=== PATIENT | male | born 1945 | race Caucasian/White ===

== ENCOUNTER 2017-05-30 06:19 | Day surgery (SDC) | payer MEDICARE, BC ==
[2017-05-30] MEDS ORDERED: Lactated Ringers 1,000 ML IV SCH (07:00)
[2017-05-30] MEDS ORDERED: fentaNYL 100 MCG/2 ML SDV ONE (07:37)
[2017-05-30] MEDS ORDERED: Propofol 200 MG/20 ML SDV ONE (07:37)
[2017-05-30] MEDS ORDERED: Midazolam 1 MG/ML 2 ML SDV ONE (07:37)
[2017-05-30 09:19] VITALS: BP 106/74
--- NOTE | 2017-05-31 11:19 | OR ---
DATE OF PROCEDURE: 05/30/2017 PREOPERATIVE DIAGNOSIS: Upper abdominal pain. POSTOPERATIVE DIAGNOSES: Upper abdominal pain, gastroesophageal reflux disease , and gastritis. PROCEDURE: Esophagogastroduodenoscopy with antral biopsies for CLOtest and sent for pathology to look for Helicobacter pylori, biopsy of gastroesophageal junction. ANESTHESIA: IV anesthesia with monitored anesthesia care. SURGEON: Tom Bee MD INDICATIONS: This 71-year-old white male is referred for upper endoscopy because of upper abdominal pain. This is his first upper endoscopy. I counseled him for the procedure including risks and alternatives, and he gave his informed consent to proceed. DESCRIPTION OF PROCEDURE: The patient was placed in the left lateral decubitus position. IV anesthesia was administered by the Anesthesia Service. Time-out was held. The flexible video Olympus upper endoscope was passed through his mouth, down the esophagus, and into his stomach. The scope was easily passed through the pylorus into the duodenum reaching its third portion. The scope was then slowly withdrawn examining the mucosa throughout. The duodenal mucosa appeared unremarkable. The scope was brought up through the pylorus into the antrum. There was mild erythematous streaking emanating from the pylorus consistent with gastritis. The scope was retroflexed. There was evidence of irritation in the proximal stomach also consistent with gastritis. We obtained antral biopsies for CLOtest and sent for pathology to look for Helicobacter pylori. The scope was brought up to the GE junction. This was abnormal as the Z-line was not straight. We obtained multiple totalling six biopsies of the gastroesophageal junction. The scope was then brought proximally up through the remainder of the esophagus, which otherwise appeared unremarkable and was removed. He tolerated the procedure well. Tom Bee MD /[id number]
== END 2017-05-30 09:20 | disposition home or self-care (01) ==
LOC: JP.SDS 06:19
PROVIDERS: ATTEND Surgery
DX: K22.70 Barrett's esophagus without dysplasia (principal); K21.9 Gastro-esophageal reflux disease without esophagitis; K29.70 Gastritis, unspecified, without bleeding; R07.89 Other chest pain; I10 Essential (primary) hypertension; E78.5 Hyperlipidemia, unspecified; G47.33 Obstructive sleep apnea (adult) (pediatric); I25.10 Atherosclerotic heart disease of native coronary artery without angina pectoris; N40.1 Benign prostatic hyperplasia with lower urinary tract symptoms; Z95.5 Presence of coronary angioplasty implant and graft; Z87.19 Personal history of other diseases of the digestive system; Z79.899 Other long term (current) drug therapy; Z79.82 Long term (current) use of aspirin
CPT/HCPCS: 43239; 87081; 88305; J2250; J2704; J3010; J7120

== ENCOUNTER 2018-04-15 08:04 | Day surgery (SDC) | payer MEDICARE, BC ==
[2018-04-15] MEDS ORDERED: Midazolam 1 MG/ML 2 ML SDV ONE (08:22)
[2018-04-15] MEDS ORDERED: Propofol 200 MG/20 ML SDV ONE (08:22)
[2018-04-15] MEDS ORDERED: fentaNYL 100 MCG/2 ML SDV ONE (08:22)
[2018-04-15] MEDS ORDERED: Dextrose 5%-Lactated Ringers 1,000 ML IV SCH (08:45)
[2018-04-15] MEDS ORDERED: Glycopyrrolate 0.2 MG/ML 2 ML SDV IVPUSH ONE (09:30)
[2018-04-15 11:41] VITALS: BP 123/68
--- NOTE | 2018-04-23 10:44 | OR ---
DATE OF PROCEDURE: 04/15/2018 PREOPERATIVE DIAGNOSIS: History of Flor's esophagus. POSTOPERATIVE DIAGNOSES: 1. Active gastroesophageal reflux disease with history of Flor's esophagus. 2. Minimal antral gastritis. OPERATIVE PROCEDURE: Esophagogastroduodenoscopy with: 1. Biopsies of esophagogastric junction for histologic evaluation. 2. Biopsies of antrum for CLOtest. ANESTHESIA: IV sedation. INDICATION FOR PROCEDURE: This is a 72-year-old presenting with a history of Flor's esophagus and a plan to proceed with a followup upper endoscopy. He does have some ongoing symptoms of chest pain and epigastric discomfort. Presently, he is on omeprazole 40 mg a day. Plan is to proceed with an upper GI endoscopy with biopsies as indicated. Potential risks including bleeding and perforation were discussed, and the patient wishes to proceed. DETAILS OF THE PROCEDURE: The patient was taken to the operating room and placed in a left lateral decubitus position. IV sedation was administered, after which the upper GI endoscope was passed orally through the length of the esophagus and into the stomach with retroflexion view of the fundus, thereafter through the pyloric channel into the proximal duodenum. Findings included normal hypopharynx, larynx, upper esophageal sphincter, and esophageal body. At the EG junction, there was a marked inflammation with several areas of ulceration which was still present of blood. This was associated with some upward extension of the gastroesophageal junction mucosal lining consistent with known gastroesophageal reflux disease. No stricturing or plaquing was seen. The scope was then advanced into the stomach with the antrum showing some very minimal patchy redness of the pyloric channel and the duodenum to the junction of the third and fourth portions were unremarkable. At this point, biopsies were obtained from the antrum and sent for CLOtest for H. pylori. Multiple biopsies were obtained from esophagogastric junction, sent for histologic evaluation. Minimal bleeding from the biopsy site was seen and the procedure then concluded. Plan will be to see the patient this coming Sunday to discuss treatment options. He appeared to be a good candidate for antireflux procedure given the degree of symptoms and the lack of efficacy of . Bg Luong MD /[id number]
== END 2018-04-15 11:30 | disposition home or self-care (01) ==
LOC: JP.SDS 08:04
PROVIDERS: ATTEND Surgery
DX: K22.70 Barrett's esophagus without dysplasia (principal); K21.9 Gastro-esophageal reflux disease without esophagitis; K29.70 Gastritis, unspecified, without bleeding; I10 Essential (primary) hypertension; E78.5 Hyperlipidemia, unspecified; I25.10 Atherosclerotic heart disease of native coronary artery without angina pectoris; G47.33 Obstructive sleep apnea (adult) (pediatric); Z79.899 Other long term (current) drug therapy; Z88.8 Allergy status to other drugs, medicaments and biological substances
CPT/HCPCS: 43239; 87081; 88305; J2250; J2704; J3010; J7042; J3490

== ENCOUNTER 2018-06-06 07:24 | Inpatient (IN) | payer MEDICARE, BC ==
[2018-06-06] MEDS ORDERED: Acetaminophen 500 MG Tab PO ONE (07:30)
[2018-06-06] MEDS ORDERED: Dextrose 5%-Lactated Ringers 1,000 ML IV SCH (07:45)
[2018-06-06] MEDS ORDERED: cefOXitin 2 GM in Sodium Chloride 0.9% 50 ML IV ONE (08:30)
[2018-06-06] MEDS ORDERED: Naloxone 0.4 MG/ML SDV IVPUSH PRN (08:53)
[2018-06-06] MEDS ORDERED: Naloxone 0.4 MG/ML SDV IV PRN (08:56)
[2018-06-06] MEDS ORDERED: fentaNYL 250 MCG/5 ML SDV ONE ×2 (08:57→10:22)
[2018-06-06] MEDS ORDERED: Glycopyrrolate 0.2 MG/ML 5 ML MDV ONE (08:58)
[2018-06-06] MEDS ORDERED: Dexamethasone 4 MG/ML SDV ONE (08:58)
[2018-06-06] MEDS ORDERED: Propofol 200 MG/20 ML SDV ONE (08:58)
[2018-06-06] MEDS ORDERED: Ondansetron 4 MG/2 ML SDV ONE (08:58)
[2018-06-06] MEDS ORDERED: Neostigmine Methylsulfate 1 MG/ML 5 ML Syringe ONE (08:58)
[2018-06-06] MEDS ORDERED: Succinylcholine 200 MG/10 ML MDV ONE (08:58)
[2018-06-06] MEDS ORDERED: Rocuronium 50 MG/5 ML Vial ONE ×2 (08:58→10:22)
[2018-06-06] MEDS ORDERED: Ketamine 500 MG/5 ML MDV IV SCH (09:00)
[2018-06-06] MEDS ORDERED: Ropivacaine 48 ML, Dexamethasone 8 MG, EPINEPHrine 0.4 MG, Sodium Chloride 0.9% 29.6 ML NERVRT SCH ×4 (09:00)
[2018-06-06] MEDS: HYDROmorphone/Normal Saline 15 MG/30 ML PCA IV PRN (09:03)
[2018-06-06] MEDS ORDERED: Meropenem 500 MG SDV ONE (10:28)
[2018-06-06] MEDS ORDERED: Lactated Ringers 1,000 ML ONE (11:34)
[2018-06-06] MEDS ORDERED: hydrOXYzine HCl 100 MG/2 ML SDV IM ONE (12:23)
[2018-06-06] MEDS: Dextrose 5%-Lactated Ringers 1,000 ML IV SCH ×2 (13:27→20:37)
[2018-06-06] MEDS ORDERED: Ondansetron 4 MG/2 ML SDV IVPUSH PRN (14:00)
[2018-06-06] MEDS ORDERED: hydrOXYzine HCl 100 MG/2 ML SDV IM PRN (14:00)
[2018-06-06] MEDS ORDERED: Cyclobenzaprine 10 MG Tab PO PRN (14:01)
[2018-06-06] MEDS: Tamsulosin 0.4 MG Cap.ER PO SCH ×2 (14:12→20:39)
[2018-06-06] MEDS: Pantoprazole 40 MG Vial IVPUSH SCH (15:50)
[2018-06-06] MEDS: Metoclopramide 10 MG/2 ML SDV IVPUSH SCH ×2 (15:51→22:35)
[2018-06-06] MEDS: cefOXitin 2 GM in Sodium Chloride 0.9% 50 ML IV SCH ×2 (16:06→22:37)
[2018-06-06] MEDS: Metoprolol Tartrate 50 MG Tab PO SCH (20:40)
[2018-06-07] MEDS: Dextrose 5%-Lactated Ringers 1,000 ML IV SCH ×4 (02:52→22:17)
[2018-06-07] MEDS: cefOXitin 2 GM in Sodium Chloride 0.9% 50 ML IV SCH ×4 (03:01→22:17)
[2018-06-07] MEDS: Metoclopramide 10 MG/2 ML SDV IVPUSH SCH ×2 (03:04→10:00)
--- NOTE | 2018-06-07 09:04 | PN ---
DATE OF SERVICE: 06/07/2018 SUBJECTIVE: Myles is postop day #1. His pain has been controlled. He has been on ice chips. Oral intake 240. Urine output 625. HALEIGH drain put out 155. He was started on Flomax. 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 He has been up ambulating. States his pain is controlled, using his incentive spirometer. REVIEW OF SYSTEMS: Remainder of review of systems negative for any pertinent positives and negatives. OBJECTIVE: GENERAL: Myles Flowers is a 72-year-old male, alert, orientated, sitting up in the chair. VITAL SIGNS: TPR 97.9, 74, 18. Blood pressure 156/81. HEENT: Negative. NECK: Supple. HEART: Regular rate and rhythm. LUNGS: Clear. ABDOMEN: Dressings dry and intact. Abdominal binder is on. HALEIGH drain intact, draining as above. EXTREMITIES: Without peripheral edema. 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 Date of surgery, 06/06/2018. Surgeon, Bg Luong M.D. PLAN: 1. Verify the patient's consent and schedule delayed primary closure, IV sedation and TAP block for 06/08/2018; Bg Luong M.D. N.p.o. after midnight. 2. Full liquid diet. 3. Decrease IV rate to 100 mL per hour. 4. Good pulmonary toilet. 5. We will evaluate p.r.n. or in the a.m. Gabby Boyle PA-C /[id number]
[2018-06-07] MEDS: atorvaSTATin 20 MG Tab PO SCH (10:00)
[2018-06-07] MEDS: amLODIPine 10 MG Tab PO SCH (10:00)
[2018-06-07] MEDS: Metoprolol Tartrate 50 MG Tab PO SCH ×2 (10:00→22:21)
[2018-06-07] MEDS ORDERED: Metoclopramide 10 MG/2 ML SDV IVPUSH PRN (16:00)
[2018-06-07] MEDS: Pantoprazole 40 MG Vial IVPUSH SCH (16:19)
[2018-06-07] MEDS: HYDROmorphone/Normal Saline 15 MG/30 ML PCA IV PRN (19:50)
[2018-06-07] MEDS: Tamsulosin 0.4 MG Cap.ER PO SCH (22:21)
[2018-06-08] MEDS ORDERED: Lidocaine 1% with EPINEPHrine 1:100,000 50 ML MDV ONE (06:12)
[2018-06-08] MEDS ORDERED: Bupivacaine 0.5% 50 ML MDV ONE (06:12)
[2018-06-08] MEDS ORDERED: Meropenem 500 MG SDV ONE (06:12)
[2018-06-08] MEDS ORDERED: fentaNYL 100 MCG/2 ML SDV ONE (06:54)
[2018-06-08] MEDS ORDERED: Propofol 200 MG/20 ML SDV ONE (06:54)
[2018-06-08] MEDS ORDERED: Ropivacaine 48 ML, Dexamethasone 8 MG, EPINEPHrine 0.4 MG, Sodium Chloride 0.9% 29.6 ML NERVRT SCH ×4 (07:15)
[2018-06-08] MEDS ORDERED: Non-Formulary Medication 1 Each SCH (07:15)
[2018-06-08] MEDS ORDERED: Lactated Ringers 1,000 ML ONE (07:39)
[2018-06-08] MEDS: Metoprolol Tartrate 50 MG Tab PO SCH ×2 (09:15→20:21)
[2018-06-08] MEDS: amLODIPine 10 MG Tab PO SCH (09:15)
[2018-06-08] MEDS: Bisacodyl 5 MG Tab PO SCH ×2 (09:15→20:20)
[2018-06-08] MEDS: Docusate Sodium 100 MG Cap PO SCH ×2 (09:16→20:21)
[2018-06-08] MEDS: atorvaSTATin 20 MG Tab PO SCH (09:16)
--- NOTE | 2018-06-08 09:54 | PN ---
DATE OF SERVICE: 06/08/2018 The patient has been afebrile with stable vital signs. Oral intake is fairly good. We will proceed with delayed primary closure of abdominal incision today and then restart his diet. I think we will leave him on CLAIM INSPECTOR for today and most likely switch over to oral pain medication tomorrow. Bg Luong MD /[id number]
[2018-06-08] MEDS: Dextrose 5%-Lactated Ringers 1,000 ML IV SCH ×2 (14:05→22:25)
[2018-06-08] MEDS: Pantoprazole 40 MG Vial IVPUSH SCH (16:36)
[2018-06-08] MEDS: Tamsulosin 0.4 MG Cap.ER PO SCH (20:20)
[2018-06-09] MEDS ORDERED: Acetaminophen/oxyCODONE 325-5 MG Tab PO PRN (07:35)
[2018-06-09] MEDS ORDERED: Dextrose 5%-Lactated Ringers 1,000 ML IV SCH (07:45)
[2018-06-09] MEDS: Docusate Sodium 100 MG Cap PO SCH ×2 (08:06→20:17)
[2018-06-09] MEDS: Metoprolol Tartrate 50 MG Tab PO SCH ×2 (08:06→20:16)
[2018-06-09] MEDS: atorvaSTATin 20 MG Tab PO SCH (08:07)
[2018-06-09] MEDS: amLODIPine 10 MG Tab PO SCH (08:07)
[2018-06-09] MEDS ORDERED: Pantoprazole 40 MG Tab.CR PO SCH (16:00)
[2018-06-09] MEDS: Tamsulosin 0.4 MG Cap.ER PO SCH (20:16)
--- NOTE | 2018-06-10 08:42 | OR ---
DATE OF PROCEDURE: 06/06/2018 PREOPERATIVE DIAGNOSIS: Gastroesophageal reflux disease refractory to medical management with coexisting Flor's esophagus. POSTOPERATIVE DIAGNOSES: 1. Gastroesophageal reflux disease refractory to medical management with coexisting Flor's esophagus. 2. Extensive intra-abdominal adhesions including areas of small bowel to the abdominal wall with 2 focal areas of deserosalization secondary to adherence of the abdominal wall. OPERATIVE PROCEDURES: Diagnostic laparoscopy converted to laparotomy with lysis of extensive adhesions, and: 1. Repair of paraesophageal diaphragmatic hernia with mesh and concurrent Lizbeth fundoplication (40115). 2. Closure of small bowel deserosalization x2 (60521). ANESTHESIA: General. MACHINE I COREMAKER: Gabby Boyle PA-C. INDICATIONS FOR PROCEDURE: The patient presents with gastroesophageal reflux disease that has become quite refractory to medical management. After preoperative evaluation and discussion, he wished to proceed with a Lizbeth fundoplication. He has a long midline incision extending into the upper abdomen, and he is aware there is a significant likelihood that he may need to have an open approach due to adhesions. Otherwise, potential risks of the fundoplication including bleeding, infection, injury to underlying viscera, problems with fundoplication such as dysphagia, gas-bloat syndrome, disorders of gastric emptying rate, as well as the possibility of cardiopulmonary, septic, or hemorrhagic complications leading to were all discussed, and the patient wishes to proceed. DETAILS OF PROCEDURE: The patient was taken to the operating room and placed in a supine position. After general endotracheal anesthesia was induced, he was converted to a lithotomy position and a Beasley catheter was attempted to be placed. Due to urethral stricturing secondary to his TUR procedures, even an 8-[place] Beasley catheter was not able to be placed, and we elected not to pursue that further at that point. Should the patient postoperatively develop any urinary retention, then either he would need placement of a suprapubic tube or get a catheter in place by means of a filiform and follower technique. The abdomen was then prepped and draped. Initially, in the left lateral abdomen, a transverse incision was made. At this point, the peritoneal cavity was entered and a small open area was seen. This was quite limited in terms of visualization. The peritoneal cavity was inflated to 15 mmHg with CO2 and no injuries were seen. Given this, then two attempts, one in the right lower mid-abdomen and one in the right upper mid-abdomen were made to enter the peritoneal cavity. In each case, the Optiview trocar came into what appeared to be densely adhered omentum. At that point, the decision was made to convert into an open approach. Trocars were removed. An upper midline incision was made and carried down through the skin and subcutaneous tissue, and fascia and peritoneum. On lower end of the incision, there were some 2 areas of small bowel that were densely adherent to the abdominal wall along the incision. The 2 areas appeared to be deserosalized after dissection away from those areas. No full enterotomies were noted. Both sites were then closed with transverse firings of the ANISH siddiqui load. Attention was then taken to the upper abdomen. Some adhesions were taken down there as well. At that point, the patient had an James tube placed for anesthesia to identify the esophagogastric junction and distal esophagus. After the liver was retracted, the esophagogastric junction was initially encircled and then freed up from the various attachments, and subsequently, at that point, we had roughly 4 to 5 cm length intraabdominal esophagus. The posterior crural repair was then accomplished with some 0 Ethibond sutures reinforced with PTFE pledgets, and a portion of the Phasix mesh was then placed over the crural repair and fixed with some absorbable tacking screws. At this point, beginning on the upper greater curvature, the omentum was divided away from the stomach. This dissection then continued proximally dividing the short gastric, including the highest and posterior short gastrics. This allowed adequate floppiness of the fundus. This was retrieved through the retroesophageal window. The James tube was then replaced with a 54-[place] Savary dilator placed over a guidewire per Anesthesia. A 2-cm three-stitch fundoplication was accomplished with 0 Ethibond sutures reinforced with PTFE pledgets. Each of the sutures included bites of the underlying esophagus to help fix it in position. A suture on each side of the fundoplication overlying the diaphragm was then stitched, pledget combination was then also placed to try to prevent slippage of the fundoplication. At that point, no further problems were noted. The abdomen was irrigated with antibiotic-containing saline solution. A Evan-Simms drain was taken out through the original trocar site in the left subcostal area. Bilateral subcostal transversus abdominis plane blocks had been placed internally prior to closure. The midline fascia was then approximated with a #2 Vicryl stitch. The skin and subcutaneous tissue were felt to be at risk for wound infection if a primary closure was undertaken. Given this, the wound was packed open, including the trocar sites for a planned delayed primary closure in 48 hours. The patient was taken to the recovery room in a satisfactory condition. Physician assignment desk assistant, Gabby Boyle, played an essential role in assisting in this case, helping to position the patient, retract structures as needed, as well as suturing and cutting sutures when indicated. Her presence improved patient safety and decreased the operative time. Bg Luong MD /[id number]
[2018-06-10 08:46] VITALS: BP 156/80
[2018-06-10] MEDS: Metoprolol Tartrate 50 MG Tab PO SCH (09:11)
[2018-06-10] MEDS: atorvaSTATin 20 MG Tab PO SCH (09:11)
[2018-06-10] MEDS: amLODIPine 10 MG Tab PO SCH (09:12)
[2018-06-10] MEDS: Docusate Sodium 100 MG Cap PO SCH (09:13)
--- NOTE | 2018-06-10 09:19 | DISCH ---
ADMISSION DIAGNOSES: 1. Gastroesophageal reflux disease refractory to medical management. 2. Dyslipidemia. 3. Hypertension. 4. Obstructive sleep apnea. 5. Benign nonnodular prostatic hyperplasia. 6. History of coronary artery bypass graft x2. DISCHARGE DIAGNOSES: 1. 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 Date of surgery, 06/06/2018. Surgeon, Bg Luong MD. 2. Delayed primary closure of open abdominal incision on 06/08/2018. Surgeon, Bg Luong MD. HISTORY: Myles Flowers is a 72-year-old male with a longstanding history of GERD refractory to medical management. After preoperative evaluation and discussion of possible risks and possible complications, he wished to proceed with surgical procedure. HOSPITAL COURSE: Myles had his surgery on 06/06/2018. He had no operative complications. On postoperative day #1, he was started on a full liquid diet. IV was decreased. On 06/08/2018, he had a delayed primary closure without any complications. On 06/09/2018, he was changed to oral pain medication, and his oral intake was good, and his activity was good. On 06/10/2018, he was able to be discharged to home without any complications. PHYSICAL EXAMINATION: GENERAL: Myles Flowers is a 72-year-old male. VITAL SIGNS: Height is 5 feet 6.9 inches. Weight is 211 pounds. TPR is 97.3, 70, 16, and blood pressure 132/74. HEENT: Negative. NECK: Supple. HEART: Regular rate and rhythm. LUNGS: Clear. ABDOMEN: Troy in place. Peripheral HALEIGH drain was removed and 4x4 placed over that. Midline HALEIGH drain remains intact. Abdominal binder is on. EXTREMITIES: Without peripheral edema. DISPOSITION: Discharged to home. CONDITION: Stable and improving. FOLLOWUP: Followup appointment with Bg Luong MD, on 06/19/2018, at 9 a.m. He will have a dietitian appointment at that time also. DISCHARGE MEDICATIONS: Home medications, Tylenol Extra Strength 1000 mg q.6 hours p.r.n. pain, #100. He is to resume his home medications of; 1. FiberCon 625 mg oral daily. 2. Glucosamine chondroitin one tablet daily. He can either hold the medication split or crush until he is able to swallow the large pill. 3. Metoprolol tartrate 50 mg oral twice daily. 4. Norvasc 10 mg oral daily. 5. Atorvastatin 40 mg oral daily. Discontinue taking the omeprazole. DISCHARGE DIET: Full liquid diet for 2 weeks. Drink 8 to 10 glasses of water a day. ACTIVITY: No lifting greater than 10 pounds for 6 weeks. Other activity, walk at least 6 times daily inside your home. Driving, do not drive for one week. May shower. Keep site clean and dry. Wear abdominal binder for 6 weeks. Strip, empty, measure, and record HALEIGH drain 4 times a day and when half full. Bring record of drainage to clinic appointment. DISCHARGE INSTRUCTIONS: Special instruction, use incentive spirometer 10 times every hour while awake.
--- NOTE | 2018-06-17 13:50 | OR ---
DATE OF PROCEDURE: 06/08/2018 PREOPERATIVE DIAGNOSIS: Open abdominal incision. POSTOPERATIVE DIAGNOSES: 1. Open abdominal incision. 2. Abdominal wall lipoma. OPERATIVE PROCEDURE: 1. Delayed primary closure of open abdominal incision. 2. Excision of abdominal wall subcutaneous lipoma (73235). ANESTHESIA: Local plus IV sedation. INDICATION FOR PROCEDURE: The patient is status post an open laparotomy which was abdominal wall which put it at high risk for wound infection if primary closure was undertaken. Given this, the wound was packed open, a planned delayed primary closure was scheduled at this time. Potential risks including bleeding and infection were reviewed, and the patient wishes to proceed. DETAILS OF PROCEDURE: The patient was taken to the operating room, placed in a supine position. After IV sedation was administered, the patient had bilateral lateral abdominal wall transverse abdominis plane blocks placed. This was done with the usual ultrasound guidance. Following this, the dressing was taken down. The wound was inspected and found to be clean. It was then prepped and draped, anesthetized with 1% lidocaine mixed with Marcaine and irrigated with meropenem-containing saline solution. The patient was noted to have a roughly 1-2 cm subcutaneous lipoma on one of the edges of the lower aspect of the incision. This was excised and the incision then closed with 2 layers of 3-0 and 4-0 Vicryl stitch deep and then anand for the skin. Dressing was applied. The patient was taken to the recovery room in satisfactory condition. Bg Luong MD /[id number]
== END 2018-06-10 10:48 | disposition home or self-care (01) | DRG 327 ==
LOC: JP.MS 07:24 → JP.SDS 07:24 → EDSTATUS 07:30 → JP.MS 11:55
PROVIDERS: ADMIT Surgery; ATTEND Surgery
PROC: 0DV40ZZ Restriction of Esophagogastric Junction, Open Approach (ICD-10-PCS; principal; 2018-06-06)
PROC: 0BUT0JZ Supplement Diaphragm with Synthetic Substitute, Open Approach (ICD-10-PCS; 2018-06-06)
PROC: 0DJ04ZZ Inspection of Upper Intestinal Tract, Percutaneous Endoscopic Approach (ICD-10-PCS; 2018-06-06)
PROC: 0DNU0ZZ Release Omentum, Open Approach (ICD-10-PCS; 2018-06-06)
PROC: 0DNW0ZZ Release Peritoneum, Open Approach (ICD-10-PCS; 2018-06-06)
PROC: 0DQ80ZZ Repair Small Intestine, Open Approach (ICD-10-PCS; 2018-06-06)
PROC: 0T9B70Z Drainage of Bladder with Drainage Device, Via Natural or Artificial Opening (ICD-10-PCS; 2018-06-06)
PROC: 3E0T3BZ Introduction of Anesthetic Agent into Peripheral Nerves and Plexi, Percutaneous Approach (ICD-10-PCS; 2018-06-06)
PROC: 0JB80ZZ Excision of Abdomen Subcutaneous Tissue and Fascia, Open Approach (ICD-10-PCS; 2018-06-08)
PROC: 0WQF0ZZ Repair Abdominal Wall, Open Approach (ICD-10-PCS; 2018-06-08)
PROC: 0JB80ZZ Excision of Abdomen Subcutaneous Tissue and Fascia, Open Approach (ICD-10-PCS; 2018-06-08)
DX: K21.9 Gastro-esophageal reflux disease without esophagitis (principal); S36.499A Other injury of unspecified part of small intestine, initial encounter; K22.70 Barrett's esophagus without dysplasia; K44.9 Diaphragmatic hernia without obstruction or gangrene; K66.0 Peritoneal adhesions (postprocedural) (postinfection); Z53.31 Laparoscopic surgical procedure converted to open procedure; I10 Essential (primary) hypertension; E78.5 Hyperlipidemia, unspecified; I25.10 Atherosclerotic heart disease of native coronary artery without angina pectoris; Z95.1 Presence of aortocoronary bypass graft; Z88.8 Allergy status to other drugs, medicaments and biological substances; N99.114 Postprocedural urethral stricture, male, unspecified; D17.1 Benign lipomatous neoplasm of skin and subcutaneous tissue of trunk; G47.33 Obstructive sleep apnea (adult) (pediatric); N40.0 Benign prostatic hyperplasia without lower urinary tract symptoms
CPT/HCPCS: 36415; 80053; 83735; 84100; 85027; 88304; 88305; 88307; 94762; A9270-GY; C1781; C9113; J0171; J0330; J0694; J1100; J1170; J2185; J2405; J2704; J2710; J2765; J2795; J3010; J3410; J3490; J7042; J7050; J7120

== ENCOUNTER 2020-09-24 05:48 | Day surgery (SDC) | payer BC, MEDICARE ==
[2020-09-24] MEDS ORDERED: Dextrose 5%-Lactated Ringers 1,000 ML IV SCH (07:00)
[2020-09-24] MEDS ORDERED: Midazolam 1 MG/ML 2 ML SDV ONE (07:09)
[2020-09-24] MEDS ORDERED: Propofol 200 MG/20 ML SDV ONE (07:09)
[2020-09-24] MEDS ORDERED: fentaNYL 100 MCG/2 ML SDV ONE (07:09)
[2020-09-24] MEDS ORDERED: Pantoprazole 40 MG Vial IVPUSH ONE (08:02)
[2020-09-24 10:10] VITALS: BP 118/67; PULSE 56
--- NOTE | 2020-09-28 16:06 | OR ---
DATE OF PROCEDURE: 09/24/2020 SURGEON: Bg Luong MD PREOPERATIVE DIAGNOSES: 1. History of Flor esophagus. 2. History of colonic adenomas. POSTOPERATIVE DIAGNOSES: 1. History of Flor esophagus with intact Lizbeth fundoplication and minimal occurring inflammation at esophagogastric junction. 2. Moderate antral gastritis. 3. History of colon polyps with no recurrent polypoid disease on current examination. OPERATIVE PROCEDURES: 1. Esophagogastroduodenoscopy with: a. Biopsies of esophagogastric junction for histologic evaluation. b. Biopsies of antrum for CLOtest. 2. Flexible colonoscopy. SUMMARY: This is a 75-year-old male presenting with some ongoing chest discomfort. On questioning the patient, this appeared to be somewhat to the right of the midline, and he actually has some mild discomfort on palpation of the mid anterior chest wall to the right of the midline indicating some possible musculoskeletal discomfort as opposed to visceral or cardiac type discomfort. At any rate, the patient has history of previous Lizbeth fundoplication. He does take some Levsin for primarily some episodes of esophageal spasm, but is not presently on any antisecretory medication. He does have history of previous colon polyps. Plan is to proceed with upper and lower endoscopy with biopsies and polypectomy as indicated. Potential risks including bleeding and perforation were discussed, and the patient wishes to proceed. DETAILS OF PROCEDURE: The patient was then taken to the operating room, placed in a left lateral decubitus position. IV sedation was administered, after which the upper GI endoscope was passed orally through the length of the esophagus into the stomach with retroflexion view of the fundus, thereafter through the pyloric channel into the junction of the third and fourth portions of the duodenum. Findings included normal hypopharynx, larynx, upper esophageal sphincter, and esophageal body. At the EG junction, there was an intact Lizbeth fundoplication. There was some upward extension of the columnar-type mucosa consistent with history of Flor esophagus. No plaquing or stricturing or others suggestive of neoplastic change was evident. The was a small amount of inflammation present at the distal esophagus where it would be grossly very minimal. Within the stomach, there was some patchy reddened areas in the antrum, otherwise the pyloric sphincter and visualized portions of the duodenum were unremarkable. At this point, biopsies were obtained from the antrum and sent for CLOtest for H. pylori. Multiple biopsies were then obtained from esophagogastric junction, sent for histologic evaluation. Minimal bleeding from the biopsy sites was seen and the procedure then concluded with removal of the upper GI endoscope. Attention was then taken to the colonoscopy. Initial digital rectal exam was performed, it was unremarkable. Colonoscope was then passed into the rectum with retroflexion revealing uncomplicated hemorrhoidal columns. Scope was then eventually passed to the level of the cecum. The prep was quite good. There was only a small amount of liquid stool present. To that level, no abnormalities were noted. There were no diverticula, no areas of colitis, and no polyps or other signs of neoplasia. Scope was then withdrawn, the above findings reconfirmed, and the procedure then concluded. At this point, we will begin the patient on a course of Protonix. We will give him Protonix 40 mg IV in the recovery room followed by 40 mg orally to see if that is helpful with regard to his symptoms. He was instructed to follow up with Dr. Lopez to assess the trial of the proton pump inhibitors in roughly 1 month. Bg Luong MD /[id number]
== END 2020-09-24 09:20 | disposition home or self-care (01) ==
LOC: JP.SDS 05:48
PROVIDERS: ATTEND Surgery
DX: Z12.11 Encounter for screening for malignant neoplasm of colon (principal); K29.70 Gastritis, unspecified, without bleeding; K31.89 Other diseases of stomach and duodenum; K21.9 Gastro-esophageal reflux disease without esophagitis; I10 Essential (primary) hypertension; E78.5 Hyperlipidemia, unspecified; Z95.1 Presence of aortocoronary bypass graft; Z88.8 Allergy status to other drugs, medicaments and biological substances; Z87.19 Personal history of other diseases of the digestive system; Z85.038 Personal history of other malignant neoplasm of large intestine
CPT/HCPCS: 43239; 87081; C9113; G0105; J2250; J2704; J3010; J7121; 88305

== ENCOUNTER 2022-06-27 06:22 | Day surgery (SDC) | payer MEDICARE ==
[2022-06-27] MEDS ORDERED: Midazolam 1 MG/ML 2 ML SDV ONE (06:59)
[2022-06-27] MEDS ORDERED: Propofol 200 MG/20 ML SDV ONE (06:59)
[2022-06-27] MEDS ORDERED: fentaNYL 100 MCG/2 ML SDV ONE (06:59)
[2022-06-27] MEDS: Lactated Ringers 1,000 ML IV SCH (07:06)
[2022-06-27 10:04] VITALS: BP 141/80; PULSE 52
== END 2022-06-27 10:30 | disposition home or self-care (01) ==
LOC: JP.SDS 06:22
PROVIDERS: ATTEND Family Medicine
DX: K29.50 Unspecified chronic gastritis without bleeding (principal); K21.9 Gastro-esophageal reflux disease without esophagitis; I10 Essential (primary) hypertension; E78.00 Pure hypercholesterolemia, unspecified; I25.10 Atherosclerotic heart disease of native coronary artery without angina pectoris; G47.33 Obstructive sleep apnea (adult) (pediatric); Z88.8 Allergy status to other drugs, medicaments and biological substances; Z79.810 Long term (current) use of selective estrogen receptor modulators (SERMs); Z79.83 Long term (current) use of bisphosphonates; Z79.899 Other long term (current) drug therapy; Z95.1 Presence of aortocoronary bypass graft
CPT/HCPCS: 43239; 88305; J2704; J3010; J7120; J2250

== ENCOUNTER 2023-06-15 07:27 | Day surgery (SDC) | payer MEDICARE ==
[2023-06-15] MEDS ORDERED: Dextrose 5%-Lactated Ringers 1,000 ML IV SCH (08:00)
[2023-06-15] MEDS ORDERED: fentaNYL 50 MCG/ML SDV ONE (08:43)
[2023-06-15] MEDS ORDERED: Midazolam 1 MG/ML 2 ML SDV ONE (08:43)
[2023-06-15] MEDS ORDERED: Propofol 200 MG/20 ML SDV ONE ×3 (08:43→10:50)
[2023-06-15 11:18] VITALS: BP 138/70; PULSE 55
== END 2023-06-15 11:30 | disposition home or self-care (01) ==
LOC: JP.SDS 07:27
PROVIDERS: ATTEND Surgery
DX: Z12.11 Encounter for screening for malignant neoplasm of colon (principal); K22.70 Barrett's esophagus without dysplasia; K63.5 Polyp of colon; K21.00 Gastro-esophageal reflux disease with esophagitis, without bleeding; K64.9 Unspecified hemorrhoids; I25.10 Atherosclerotic heart disease of native coronary artery without angina pectoris; I10 Essential (primary) hypertension; Z98.890 Other specified postprocedural states; Z95.1 Presence of aortocoronary bypass graft; Z88.8 Allergy status to other drugs, medicaments and biological substances
CPT/HCPCS: 43239; 45385; 88305; J2250; J2704; J3010; J7121

== ENCOUNTER 2025-06-03 15:22 | Emergency (ER) | payer MEDICARE ==
[2025-06-03] MEDS: Ondansetron 4 MG/2 ML SDV IVPUSH ONE (18:33)
[2025-06-03 18:35] LABS: BASOPHILS PERCENT AUTO 0.2 % (0.1-1.3); EOSINOPHILS PERCENT AUTO 0.1 % (0.0-5.4); IMMATURE GRAN ABSOLUTE AUTO 0.04 K/uL (0.00-0.23); IMMATURE GRAN PERCENT AUTO 0.4 % (0.0-0.7); LYMPHOCYTES ABSOLUTE AUTO 1.97 K/uL (0.8-3.3); LYMPHOCYTES PERCENT AUTO 18.0 % (11.4-47.7); MONOCYTES ABSOLUTE AUTO 0.80 K/uL (0.20-0.90); MONOCYTES PERCENT AUTO 7.3 % (3.3-12.6); NEUTROPHILS ABSOLUTE AUTO 8.12 K/uL (1.0-7.6); NEUTROPHILS PERCENT AUTO 74.0 % (40.0-78.1); PLATELET COUNT,PLT 239 K/uL (130-375); RED BLOOD CELL COUNT 4.95 M/uL (4.14-5.76); WHITE BLOOD CELL COUNT,WBC 11.0 K/uL (3.2-11.0)
[2025-06-03 18:36] LABS: BASOPHILS ABSOLUTE AUTO 0.02 K/uL (0.00-0.10); EOSINOPHILS ABSOLUTE AUTO 0.01 K/uL (0.00-0.40)
[2025-06-03 18:59] LABS: A/G RATIO 1.1 (1.2-2.2); ALANINE AMINOTRANSFERASE,ALT 27 U/L (12-78); ASPARTATE AMNIOTRANSFERASE,AST 18 U/L (15-37); BILIRUBIN TOTAL 0.9 mg/dL (0.2-1.0); BLOOD UREA NITROGEN,BUN 14 mg/dL (7-18); CARBON DIOXIDE,CO2 32 mmol/L (21-32); CHLORIDE,CL 99 mmol/L (100-108); CREATININE 0.9 mg/dL (0.8-1.3); EST CRCL DRUG DOSING (CG) 64.26 mL/min; ESTIMATED GFR 88 mL/min (>60); GLUCOSE RANDOM 89 mg/dL (74-106); POTASSIUM,K 3.2 mmol/L (3.6-5.2); PROTEIN TOTAL,TP 7.3 g/dL (6.4-8.2); SODIUM,NA 137 mmol/L (140-148); TROPONIN I HIGH SENSITIVITY 10.7 pg/mL (<=60.3)
[2025-06-03 19:24] VITALS: BP 140/70; PULSE 79
[2025-06-03 19:32] LABS: APPEARANCE,URINE SLIGHTLY CLOUDY (CLEAR); GLUCOSE,URINE NEGATIVE (NEGATIVE); OCCULT BLOOD,URINE NEGATIVE (NEGATIVE)
[2025-06-03 19:39] LABS: EPITHELIAL CELLS,URINE RARE
[2025-06-03] MEDS: Potassium Chloride 20 MEQ Tab.ER PO ONE (19:57)
== END 2025-06-03 20:05 | disposition home or self-care (01) ==
LOC: JP.ED 15:22
DX: R11.2 Nausea with vomiting, unspecified (principal); I25.10 Atherosclerotic heart disease of native coronary artery without angina pectoris; E78.00 Pure hypercholesterolemia, unspecified; I10 Essential (primary) hypertension; K21.9 Gastro-esophageal reflux disease without esophagitis; M19.90 Unspecified osteoarthritis, unspecified site; Z86.16 Personal history of COVID-19; Z95.5 Presence of coronary angioplasty implant and graft; Z88.8 Allergy status to other drugs, medicaments and biological substances; Z79.82 Long term (current) use of aspirin; Z79.899 Other long term (current) drug therapy
CPT/HCPCS: 36415; 80053; 81001; 82947; 83605; 83690; 84484; 85025; 93005; 96361; 96374; 99284; A9270; J2405; J7030